=== PATIENT | female | born 2000 | race Caucasian/White ===

== ENCOUNTER 2019-01-15 11:40 | Emergency (ER) | payer SELFPAY ==
[~2019-01-15] VITALS: Ht 170.2 cm; Wt 81.8 kg
[2019-01-15 11:55] VITALS: BP 141/80; TEMP 98.1
[2019-01-15] MEDS ORDERED: SILVADEN TOP (13:22)
[2019-01-15 13:39] VITALS: PULSE 78
== END 2019-01-15 13:41 | disposition home or self-care (01) ==
LOC: COL.ER 11:40
DX: T25.221A Burn of second degree of right foot, initial encounter (principal); T31.0 Burns involving less than 10% of body surface; F41.9 Anxiety disorder, unspecified; F32.9 Major depressive disorder, single episode, unspecified; Z23 Encounter for immunization; X17.XXXA Contact with hot engines, machinery and tools, initial encounter; Y92.69 Other specified industrial and construction area as the place of occurrence of the external cause; Y99.0 Civilian activity done for income or pay

== ENCOUNTER 2019-02-12 10:09 | Outpatient (RCR) | payer OTHER ==
[~2019-02-12 10:09] MED LIST: SILVADEN TOP
== END 2019-03-09 13:17 | disposition home or self-care (01) ==
LOC: WSOH 10:09
DX: T24.201A Burn of second degree of unspecified site of right lower limb, except ankle and foot, initial encounter (principal); X12.XXXA Contact with other hot fluids, initial encounter; Y92.511 Restaurant or cafe as the place of occurrence of the external cause; Y93.G3 Activity, cooking and baking; Y99.0 Civilian activity done for income or pay